=== PATIENT | female | born 1980 | race Hispanic/Latino ===

== ENCOUNTER 2022-12-08 23:32 | Emergency (ER) | payer OTHER ==
[~2022-12-08] VITALS: Ht 152.4 cm; Wt 93.9 kg
[2022-12-09 00:26] LABS: BASOPHILS % (AUTO) 0.6 % (0.0-5.0); EOSINOPHILS % (AUTO) 3.2 % (0.0-8.0); HEMATOCRIT 41.6 % (36-48); LYMPHOCYTES % (AUTO) 47.3 % (21.0-51.0); MEAN CORPUSCULAR HEMOGLOBIN 25.7 pg (27.0-33.0); MEAN CORPUSCULAR HGB CONC 30.8 g/dL (32.0-36.0); MEAN CORPUSCULAR VOLUME 83.4 fL (79-99); MONOCYTES % (AUTO) 6.3 % (3.0-13.0); NEUTROPHILS % (AUTO) 42.1 % (40.0-77.0); PLATELET COUNT (AUTO) 335 K/uL (130-400); RED BLOOD CELL COUNT(AUTO) 4.99 MIL/uL (4.00-5.50); RED CELL DISTRIBUTION WIDTH 14.8 % (11.0-15.5); WHITE BLOOD COUNT (AUTO) 12.4 K/uL (4.8-10.8)
[2022-12-09 00:41] LABS: CREATININE 0.8 mg/dL (0.5-1.5); POTASSIUM 3.3 mmol/L (3.5-5.1)
[2022-12-09 00:46] LABS: ALBUMIN 3.8 g/dL (3.5-5.0); TOTAL PROTEIN, SERUM 8.1 g/dL (6.0-8.3)
[2022-12-09] MEDS ORDERED: KETOROLAC 15MG/ML VIAL (15MG/ML) IV ONE (01:00)
[2022-12-09] MEDS ORDERED: PROCHLORPERAZINE 10MG/2ML INJ IV ONE (01:00)
[2022-12-09] MEDS ORDERED: DiphenhydrAMINE HCL 50 MG/ML VIAL IV ONE (01:00)
[2022-12-09] MEDS ORDERED: 0.9%NACL 1000ML 1,000 ML IV ONE (01:00)
[2022-12-09 02:31] VITALS: BP 130/74
== END 2022-12-09 03:16 | disposition home or self-care (01) ==
LOC: EDH 23:32
DX: R51.9 Headache, unspecified (principal); I10 Essential (primary) hypertension; Z98.890 Other specified postprocedural states
CPT/HCPCS: 99285; 84484; 80053; 84703; 85025; 36415; 96374; 71045; 96375; 96361; 93005; J1200; J7030; J0780; J1885

== ENCOUNTER 2023-06-07 00:41 | Inpatient (IN) | payer OTHER ==
[~2023-06-07] VITALS: Ht 152.4 cm; Wt 94.2 kg
[2023-06-07] MEDS ORDERED: METOCLOPRAMIDE 10 MG/2 ML VIAL IVP ONE (01:00)
[2023-06-07] MEDS ORDERED: MORPHINE 4 MG SYG IVP ONE (01:00)
[2023-06-07] MEDS ORDERED: LABETALOL 20MG VIAL IV ONE (01:00)
[2023-06-07 01:17] LABS: BASOPHILS # (AUTO) 0.05 K/uL (0.00-0.20); BASOPHILS % (AUTO) 0.4 % (0.0-5.0); EOSINOPHILS # (AUTO) 0.22 K/uL (0.00-0.70); EOSINOPHILS % (AUTO) 1.9 % (0.0-8.0); HEMATOCRIT 40.9 % (36-48); IMMATURE GRANULOCYTE ABSOLUTE 0.03 K/uL (0-1); LYMPHOCYTES # (AUTO) 3.8 K/uL (1.0-4.8); LYMPHOCYTES % (AUTO) 32.9 % (21.0-51.0); MEAN CORPUSCULAR HEMOGLOBIN 25.2 pg (27.0-33.0); MEAN CORPUSCULAR HGB CONC 31.3 g/dL (32.0-36.0); MEAN CORPUSCULAR VOLUME 80.7 fL (79-99); MONOCYTES # (AUTO) 0.8 K/uL (0.1-1.0); MONOCYTES % (AUTO) 7.3 % (3.0-13.0); NEUTROPHILS # (AUTO) 6.5 K/uL (1.8-7.7); NEUTROPHILS % (AUTO) 57.2 % (40.0-77.0); PLATELET COUNT (AUTO) 327 K/uL (130-400); RED BLOOD CELL COUNT(AUTO) 5.07 MIL/uL (4.00-5.50); RED CELL DISTRIBUTION WIDTH 15.5 % (11.0-15.5); WHITE BLOOD COUNT (AUTO) 11.4 K/uL (4.8-10.8)
[2023-06-07 01:22] LABS: CREATININE 0.8 mg/dL (0.5-1.5); POTASSIUM 3.7 mmol/L (3.5-5.1)
[2023-06-07 01:46] LABS: APPEARANCE,URINE CLOUDY (CLEAR); BILIRUBIN,URINE NEGATIVE (NEGATIVE); COLOR,URINE LIGHT-ORANGE (YELLOW); GLUCOSE, URINE (UA) NEGATIVE (NEGATIVE); KETONES,URINE NEGATIVE (NEGATIVE); LEUKOCYTE ESTERASE ,URINE NEGATIVE Leu/uL (NEGATIVE); NITRATE,URINE NEGATIVE (NEGATIVE); OCCULT BLOOD,URINE LARGE (NEGATIVE); PROTEIN,URINE 10 mg/dL (NEGATIVE); UROBILINOGEN,URINE 0.2 mg/dL (0.2-1.0)
[2023-06-07 01:47] LABS: HCG,QUALITATIVE URINE NEGATIVE (NEGATIVE)
[2023-06-07 01:48] LABS: ADD UA MICROSCOPIC YES
[2023-06-07 01:49] LABS: BACTERIA,URINE RARE /HPF (None Seen); RBC,URINE TNTC /HPF (0-1); WBC,URINE 0-1 /HPF (0-1)
[2023-06-07 01:53] LABS: AMPHET/METH SCREEN,URINE NEGATIVE (NEGATIVE); BARBITURATE SCREEN, URINE NEGATIVE (NEGATIVE); BENZODIAZEPINES SCREEN,URINE NEGATIVE (NEGATIVE); CANNABINOID SCREEN,URINE NEGATIVE (NEGATIVE); COCAINE SCREEN,URINE NEGATIVE (NEGATIVE); OPIATE SCREEN,URINE NEGATIVE (NEGATIVE); PHENCYCLIDINE SCREEN,URINE NEGATIVE (NEGATIVE)
[2023-06-07 02:14] VITALS: PULSE 73
[2023-06-07] MEDS ORDERED: LOSA50TA64 PO ×2 (03:03→15:19)
[2023-06-07] MEDS ORDERED: ACETAMINOPHEN 325 MG TAB PO PRN ×2 (03:30)
[2023-06-07] MEDS ORDERED: ONDANSETRON 4MG INJ IV PRN (03:30)
[2023-06-07] MEDS ORDERED: LACTULOSE 20 GM/30 ML UDCUP PO PRN (03:30)
[2023-06-07 04:16] VITALS: O2SAT 98
[2023-06-07 04:35] VITALS: BP 152/97; PULSE 76; RESP 19
[2023-06-07 07:13] VITALS: BP 147/87; PULSE 77; RESP 17
[2023-06-07] MEDS ORDERED: AMLODIPINE 5 MG TAB PO SCH (09:00)
[2023-06-07] MEDS ORDERED: FAMOTIDINE 20MG TAB PO SCH (09:00)
[2023-06-07] MEDS ORDERED: LOSARTAN 50 MG TABLET PO SCH (09:00)
[2023-06-07] MEDS ORDERED: AMLODIPINE 5 MG TAB PO ONE (09:30)
[2023-06-07 11:00] VITALS: BP 143/94; PULSE 84; RESP 17
[2023-06-07] MEDS ORDERED: IBUPROFEN 800 MG TAB PO ONE (12:00)
[2023-06-07] MEDS ORDERED: ACETAMINOPHEN 500 MG TABLET PO ONE (12:00)
[2023-06-07] MEDS ORDERED: AMLO-257 PO (12:02)
[2023-06-07] MEDS ORDERED: AMLO-258 PO (15:19)
== END 2023-06-07 15:55 | disposition home or self-care (01) | DRG 305 ==
LOC: EDH 00:41 → EDHIP 00:42 → 3BH 04:22
PROVIDERS: ADMIT Hospitalist; ATTEND Hospitalist
DX: I16.1 Hypertensive emergency (principal); Z68.41 Body mass index [BMI] 40.0-44.9, adult; G44.209 Tension-type headache, unspecified, not intractable; E66.01 Morbid (severe) obesity due to excess calories; I10 Essential (primary) hypertension; Z91.199 Patient's noncompliance with other medical treatment and regimen due to unspecified reason; Z79.899 Other long term (current) drug therapy
CPT/HCPCS: 36415; 70450; 80048; 80305; 81001; 81025; 82948; 84484; 85025; G0378; J2270; J2765; J3490

== ENCOUNTER 2023-06-21 19:54 | Emergency (ER) | payer OTHER ==
[~2023-06-21] VITALS: Ht 152.4 cm; Wt 93.0 kg
[~2023-06-21 19:54] MED LIST: AMLO-258 PO; LOSA50TA64 PO
[2023-06-21 21:04] VITALS: BP 150/77; PULSE 86; RESP 20
[2023-06-21 23:29] LABS: SARS-CoV-2, RNA, NAAT NEGATIVE SARS CoV-2 (NEGATIVE)
[2023-06-21 23:35] LABS: INFLUENZA TYPE A Negative For Type A (NEGATIVE); INFLUENZA TYPE B Negative For Type B (NEGATIVE)
[2023-06-21 23:45] LABS: RAPID GROUP A STREP positive (NEGATIVE)
[2023-06-21] MEDS ORDERED: AMOX500C2 PO (23:47)
[2023-06-22] MEDS ORDERED: CEFTRIAXONE 1G VIAL ONE (00:05)
== END 2023-06-22 00:09 | disposition home or self-care (01) ==
LOC: EDH 19:54
DX: J02.0 Streptococcal pharyngitis (principal); I10 Essential (primary) hypertension; Z20.822 Contact with and (suspected) exposure to COVID-19; Z79.899 Other long term (current) drug therapy; Z98.890 Other specified postprocedural states
CPT/HCPCS: 99283; 87635; 87880; 87804 ×2; 96374; C9803; J0696